=== PATIENT | male | born 1930 | race Hispanic/Latino ===

== ENCOUNTER 2017-02-23 04:50 | Emergency (ER) | payer MEDICARE ==
[2017-02-23 04:58] VITALS: BMI 25.2
[2017-02-23 05:00] VITALS: BP 110/57; PULSE 66; RESP 15; TEMP 97.8; O2SAT 98
--- NOTE | 2017-02-23 05:29 | ED PDOC ---
Arrival/HPI - General Chief Complaint: Lower Extremity Problem/Injury Time Seen by Provider: 02/23/17 05:11 Historian: Patient - History of Present Illness Narrative History of Present Illness (Text): 02/23/17 05:22 John Saldaña is an 86 year old male who presents to the Emergency department complaining of left heel pain for the past 2 days. Patient denies any weakness/ numbness/tingling in the extremity, recent trauma/injury, or any other complaints. Patient regularly takes Aspirin and Eliquis. Time/Duration: < week (2 days) Symptom Onset: Gradual Symptom Course: Unchanged Activities at Onset: Rest, Light Context: Home Past Medical History - Provider Review Nursing Documentation Reviewed: Yes - Cardiac Hx Pacemaker: Yes - Pulmonary Hx Respiratory Disorders: No Hx Asthma: No - Neurological Hx Paralysis: No - HEENT Hx HEENT Disorder: No - Renal Hx Renal Disorder: No - Endocrine/Metabolic Hx Endocrine Disorders: No - Hematological/Oncological Hx Blood Transfusions: Yes Hx Blood Transfusion Reaction: No - Integumentary Hx Dermatological Disorder: No - Musculoskeletal/Rheumatological Hx Musculoskeletal Disorders: No - Gastrointestinal Hx Gastrointestinal Disorders: No - Genitourinary/Gynecological Hx Genitourinary Disorders: No - Psychiatric Hx Emotional Abuse: No Hx Physical Abuse: No Hx Substance Use: No - Anesthesia Hx Anesthesia: Yes Hx Anesthesia Reactions: No Hx Malignant Hyperthermia: No - Suicidal Assessment Feels Threatened In Home Enviroment: No Family/Social History - Physician Review Nursing Documentation Reviewed: Yes Family/Social History: Unknown Family HX Smoking Status: Never Smoked Hx Alcohol Use: Yes (SOCIAL) Hx Substance Use: No Allergies/Home Meds Allergies/Adverse Reactions: Allergies No Known Allergies Allergy (Verified 02/23/17 04:57) Home Medications: Home Meds Medication Instructions Recorded Confirmed Aspirin [Low Dose Aspirin] 81 mg PO QAM 02/15/15 02/23/17 Levothyroxine Sodium 0.125 mg PO QAM 02/15/15 02/23/17 [Levothyroxine] Metoprolol Succinate [Toprol XL] 25 mg PO QAM 02/15/15 02/23/17 Simvastatin [Zocor] 40 mg PO HS 02/15/15 02/23/17 Valsartan [Diovan] 80 mg PO QPM 10/11/15 02/23/17 Apixaban [Eliquis] 2.5 mg PO BID 05/11/16 02/23/17 Physical Exam - Physical Exam Narrative Physical Exam (Text): - Review of Systems Constitutional: Normal. absent: Fatigue, Weight Change, Fevers Eyes: Normal ENT: Normal Respiratory: Normal absent: SOB, Cough, Sputum Cardiovascular: Normal absent: Chest pain, Palpitations, Syncope Gastrointestinal: Normal absent: Abdominal pain, Diarrhea, Nausea, Vomiting Genitourinary: Normal. absent: Dysuria, Frequency, Hematuria Musculoskeletal: +left heel pain absent: Arthralgias, Back Pain, Neck Pain Skin: Normal Neurological: Normal absent: Focal Weakness Psychiatric: Normal - Physical exam Patient appears age appropriate, speaking full sentences without difficulty, ambulates with walker - Systems Exam Head: Present: Atraumatic, Normocephalic Pupils: Present: PERRL Extraocular Muscles: Present: EOMI Conjunctiva: Present: Normal Back: Present: Normal Inspection. No: Midline Tenderness, Paraspinal Tenderness Upper Extremity: Present: Normal Inspection. No: Cyanosis, Edema Lower Extremity: Present: Pain at base of left heel, distal neurovascularly intact, capillary refill < 2. No: Edema, Swelling, calf tenderness, posterior knee tenderness, thigh tenderness Neurological: Present: GCS=15, Speech Normal, cranial nerves II through XII fully intact with no cerebellar abnormality, neuro-sensory fully intact. No focal neurological deficits. Skin: Present: Warm, Dry, Normal Color. No: Rashes Psychiatric: Present: Alert, Oriented x 3, Normal Insight, Normal Concentration Vital Signs Reviewed: Yes Vital Signs Temp Pulse Resp BP Pulse Ox 02/23/17 04:58 97.8 F 66 15 110/57 L 98 Temperature: Afebrile Blood Pressure: Normal Pulse: Regular Respiratory Rate: Normal Appearance: Positive for: Well-Appearing, Non-Toxic, Comfortable Pain Distress: None Mental Status: Positive for: Alert and Oriented X 3 Medical Decision Making ED Course and Treatment: 02/23/17 05:22 Impression: 86 year old male complaining of left heel pain for 2 days. On exam, there is pain at base of left heel, otherwise benign. No swelling, calf tenderness, posterior knee tenderness, or thigh tenderness noted. No redness or swelling. Pt ambulates with a walker. Differential Diagnosis include but are not limited to: plantar fasciitis Plan: -- Reassess and disposition Progress Notes: Pt is in no acute distress, well-appearing. I have discussed plan with the patient, who expresses understanding. Patient in agreement with plan to discharged home. Patient is stable for discharge. Patient was instructed to follow up with physician/orthopedist/clinic in 1-2 days or return if symptoms worsen or new concerning symptoms arise. - Scribe Statement The provider has reviewed the documentation as recorded by the Scribe Cheryl Ritchie All medical record entries made by the Scribe were at my direction and personally dictated by me. I have reviewed the chart and agree that the record accurately reflects my personal performance of the history, physical exam, medical decision making, and the department course for this patient. I have also personally directed, reviewed, and agree with the discharge instructions and disposition. Disposition/Present on Arrival - Present on Arrival Any Indicators Present on Arrival: No History of DVT/PE: No History of Uncontrolled Diabetes: No Urinary Catheter: No History of Decub. Ulcer: No History Surgical Site Infection Following: None - Disposition Have Diagnosis and Disposition been Completed?: Yes Diagnosis: Foot pain Disposition: HOME/ ROUTINE Disposition Time: 05:36 Patient Plan: Discharge Condition: GOOD Discharge Instructions (ExitCare): Plantar Fasciitis (ED) Additional Instructions: PLEASE RETURN TO THE EMERGENCY DEPARTMENT FOR NEW OR WORSENING SYMPTOMS. RETURN RIGHT AWAY IF YOU CANNOT FOLLOW UP WITH YOUR PRIMARY CARE DOCTOR, CLINIC, OR SPECIALIST IN 1-2 DAYS. Prescriptions: Acetaminophen with Codeine [Tylenol with Codeine #3 Tablet] 1 each PO Q6 PRN # 12 tablet PRN Reason: Pain, Moderate (4-7) Referrals: Alexander Gary DPM [Staff Provider] - Follow up with primary Vini Hillman III, MD [Medical Doctor] - Follow up with primary
== END 2017-02-23 05:45 | disposition home or self-care (01) ==
LOC: ED 04:50
DX: M79.672 Pain in left foot (principal)

== ENCOUNTER 2017-05-08 07:50 | Day surgery (SDC) | payer MEDICARE ==
[2017-05-01 09:20] VITALS: BMI 23.9
[2017-05-08] MEDS ORDERED: Propofol 10 mg/ml Inj (20 ML) ONE (10:08)
[2017-05-08] MEDS ORDERED: Sodium Chloride 0.9% 1,000 ML IV SCH (11:00)
[2017-05-08 11:55] VITALS: BP 135/67; PULSE 61; RESP 16; TEMP 98; O2SAT 99
== END 2017-05-08 12:20 | disposition home or self-care (01) ==
LOC: ENDO 07:50
PROVIDERS: ATTEND Specialist
DX: K22.2 Esophageal obstruction (principal); K44.9 Diaphragmatic hernia without obstruction or gangrene; I49.9 Cardiac arrhythmia, unspecified; I25.2 Old myocardial infarction; E78.5 Hyperlipidemia, unspecified; I10 Essential (primary) hypertension; K21.9 Gastro-esophageal reflux disease without esophagitis; D64.9 Anemia, unspecified; Z90.49 Acquired absence of other specified parts of digestive tract; Z95.0 Presence of cardiac pacemaker; Z95.810 Presence of automatic (implantable) cardiac defibrillator
CPT/HCPCS: 43248; J2704; J7040

== ENCOUNTER 2017-12-25 07:47 | Day surgery (SDC) | payer MEDICARE ==
[2017-12-19 13:37] VITALS: BMI 24.0
[2017-12-25] MEDS ORDERED: Propofol 10 mg/ml Inj (20 ML) ONE (08:52)
[2017-12-25] MEDS ORDERED: Sodium Chloride 0.9% 1,000 ML IV SCH (09:30)
[2017-12-25 10:10] VITALS: RESP 19; TEMP 97.6
[2017-12-25 10:22] VITALS: BP 115/59; PULSE 60; O2SAT 99
== END 2017-12-25 10:47 | disposition home or self-care (01) ==
LOC: ENDO 07:47
PROVIDERS: ATTEND Specialist
DX: K31.811 Angiodysplasia of stomach and duodenum with bleeding (principal); K22.2 Esophageal obstruction; I48.91 Unspecified atrial fibrillation; I10 Essential (primary) hypertension; F41.9 Anxiety disorder, unspecified; E78.5 Hyperlipidemia, unspecified; D64.9 Anemia, unspecified; K57.90 Diverticulosis of intestine, part unspecified, without perforation or abscess without bleeding; Z95.810 Presence of automatic (implantable) cardiac defibrillator
CPT/HCPCS: 43270; J2001; J2704; J7040

== ENCOUNTER 2018-06-04 08:14 | Day surgery (SDC) | payer MEDICARE ==
[2018-05-29 13:27] VITALS: BMI 23.9
[2018-06-04 09:23] VITALS: TEMP 98
[2018-06-04] MEDS ORDERED: Propofol 10 mg/ml Inj (20 ML) ONE (09:42)
[2018-06-04] MEDS ORDERED: Sodium Chloride 0.9% 1,000 ML IV SCH (10:15)
[2018-06-04 10:16] VITALS: RESP 16
[2018-06-04 10:27] VITALS: O2SAT 99
[2018-06-04 11:28] VITALS: BP 106/60; PULSE 62
== END 2018-06-04 11:26 | disposition home or self-care (01) ==
LOC: ENDO 08:14
PROVIDERS: ATTEND Specialist
DX: K22.2 Esophageal obstruction (principal); K44.9 Diaphragmatic hernia without obstruction or gangrene; R13.10 Dysphagia, unspecified; I48.91 Unspecified atrial fibrillation; I25.10 Atherosclerotic heart disease of native coronary artery without angina pectoris
CPT/HCPCS: 43248; J2001; J2704; J3010; J7030; J7040

== ENCOUNTER 2018-11-26 06:05 | Day surgery (SDC) | payer MEDICARE ==
[2018-05-29 13:27] VITALS: BMI 23.9
[2018-11-26] MEDS ORDERED: Lidocaine PF 2% (5 ml) Inj (For Cardiac Arrhy) ONE (08:01)
[2018-11-26] MEDS ORDERED: Propofol 10 mg/ml Inj (20 ML) ONE (08:01)
[2018-11-26] MEDS ORDERED: Etomidate 20 mg/10ml Inj IV ONE (08:05)
[2018-11-26] MEDS ORDERED: Sodium Chloride 0.9% 1,000 ML IV SCH (08:30)
[2018-11-26 08:46] VITALS: RESP 16
[2018-11-26 09:35] VITALS: PULSE 59; TEMP 98; O2SAT 98
[2018-11-26 10:16] VITALS: BP 118/55
== END 2018-11-26 10:10 | disposition home or self-care (01) ==
LOC: ENDO 06:05
PROVIDERS: ATTEND Specialist
DX: K22.2 Esophageal obstruction (principal); I48.91 Unspecified atrial fibrillation; I25.10 Atherosclerotic heart disease of native coronary artery without angina pectoris; I10 Essential (primary) hypertension; E78.5 Hyperlipidemia, unspecified; D64.9 Anemia, unspecified; Z90.49 Acquired absence of other specified parts of digestive tract; Z95.0 Presence of cardiac pacemaker; Z98.42 Cataract extraction status, left eye; Z98.41 Cataract extraction status, right eye
CPT/HCPCS: 43248; J2405; J2704; J7030